=== PATIENT | female | born 1990 | race Hispanic/Latino ===

== ENCOUNTER 2020-05-17 15:34 | Emergency (ER) | payer SELFPAY ==
[~2020-05-17] VITALS: Ht 167.6 cm; Wt 97.5 kg
[~2020-05-17 15:34] MED LIST: PRENATAL ONE T1 EACH PO
[2020-05-17] MEDS ORDERED: PENICILLIN G BENZATHINE LA 1.2 MU TBX IM STA (15:51)
[2020-05-17] MEDS ORDERED: DEXAMETHASONE SOD PHOS 10 MG/1 ML VIAL IM ONE (16:00)
[2020-05-17] MEDS ORDERED: PENICILLIN G BENZATHINE LA 1.2 MU TBX ONE (16:04)
== END 2020-05-17 16:17 | disposition home or self-care (01) ==
LOC: ER 15:34
DX: J02.0 Streptococcal pharyngitis (principal)
CPT/HCPCS: 99282; J0561; J1100